=== PATIENT | female | born 1985 | race Caucasian/White ===

== ENCOUNTER 2019-07-28 15:15 | Inpatient (IN) | payer MEDICAID, OTHER ==
[~2019-07-28] VITALS: Ht 167.6 cm; Wt 87.0 kg
[~2019-07-28 15:15] MED LIST: NO HOME MEDS
[2019-07-28] MEDS ORDERED: normal saline 1000ML IV soln IV ONE (15:25)
[2019-07-28] MEDS ORDERED: CefTRIAXone 2gm/D5W 50ml 50 ML IV ONE (15:25)
[2019-07-28] MEDS ORDERED: vancomycin/NS 1 GM ADD-VANTAGE 250 ML IV ONE (15:25)
--- NOTE | 2019-07-28 16:15 | NUR ---
PICC NURSE AT BEDSIDE
[2019-07-28 16:34] LABS: BASOPHILS % (AUTO) 0.4 % (0-1); EOSINOPHILS # (AUTO) 0.1 X10'3 (0-0.9); EOSINOPHILS % (AUTO) 1.2 % (0-6); HEMATOCRIT 34.9 % (35.0-45.0); LYMPHOCYTES # (AUTO) 1.5 X10'3 (1.1-4.8); LYMPHOCYTES % (AUTO) 21.9 % (21-51); MEAN CORPUSCULAR HEMOGLOBIN 29.1 PG (27.0-31.0); MEAN CORPUSCULAR HGB CONC 34.4 g/dL (33.0-36.5); MEAN CORPUSCULAR VOLUME 84.6 FL (78-98); MONOCYTES # (AUTO) 0.4 X10'3 (0-0.9); MONOCYTES % (AUTO) 5.9 % (2-12); NEUTROPHILS # (AUTO) 4.9 X10'3 (1.8-7.7); NEUTROPHILS % (AUTO) 70.6 % (42-75); PLATELET COUNT 265 X10'3 (140-440); RED BLOOD COUNT 4.12 X10'6 (4.20-5.60); RED CELL DISTRIBUTION WIDTH 16.9 % (11.5-14.5)
[2019-07-28 16:51] LABS: ALANINE AMINOTRANSFERASE 18 U/L (12-78); ALBUMIN 3.1 G/DL (3.4-5.0); ALBUMIN/GLOBULIN RATIO 0.6 (1.1-1.5); ALKALINE PHOSPHATASE 75 IU/L (46-116); ANION GAP 9 (8-16); ASPARTATE AMINO TRANSFERASE 23 U/L (10-37); BILIRUBIN,TOTAL 0.5 MG/DL (0.1-1.0); BLOOD UREA NITROGEN 14 MG/DL (7-18); BUN/CREATININE RATIO 16.5 (6.6-38.0); CALCIUM 8.2 MG/DL (8.5-10.1); CHLORIDE 108 MMOL/L (99-107); CREATININE 0.85 MG/DL (0.40-0.90); GLUCOSE 90 MG/DL (70-104); POTASSIUM 3.8 MMOL/L (3.5-5.1); SODIUM 143 MMOL/L (135-145); TOTAL CARBON DIOXIDE 26.1 MMOL/L (24-32); TOTAL PROTEIN 8.2 G/DL (6.4-8.2); eGFR 76 ML/MIN
[2019-07-28 16:59] LABS: ETHANOL < 0.010 GM/DL (0.0-0.010)
[2019-07-28] MEDS ORDERED: iohexol 300mg/ml 100ml inj. ONE (17:08)
[2019-07-28] MEDS ORDERED: iohexol 350MG/ML 100ml bottle IV ONE (17:36)
[2019-07-28 17:43] LABS: URINE HCG NEGATIVE (NEG)
[2019-07-28 17:45] LABS: CLARITY,URINE SLIGHTLY CLOUDY (Clear); COLOR,URINE YELLOW (Yellow); GLUCOSE, URINE NEGATIVE (Neg); KETONES,URINE NEGATIVE (Neg); LEUKOCYTE ESTERASE ,URINE NEGATIVE (Neg); NITRITES, URINE POSITIVE (Neg); OCCULT BLOOD,URINE NEGATIVE (Neg); PH,URINE 6.5 (4.8-8.0); PROTEIN,URINE TRACE mg/dl (Neg)
[2019-07-28 17:49] LABS: UA COLLECTION TYPE CLN CATCH MIDSTREAM
[2019-07-28] MEDS ORDERED: magnesium 2GM in 50ml NS 50 ML IV PRN (17:55)
[2019-07-28] MEDS ORDERED: potassium CL 10mEq/100ml bag 100 ML IV PRN ×2 (17:55)
[2019-07-28] MEDS ORDERED: morphine 2 MG/ML inj. syringe IV PRN ×2 (17:55)
[2019-07-28] MEDS ORDERED: furosemide 10 MG/1 ML 10ml inj IV ONE ×2 (17:55→18:30)
[2019-07-28] MEDS ORDERED: ondansetron/PF 4mg/2ml inj IV PRN (17:55)
[2019-07-28] MEDS ORDERED: magnesium hydroxide 30ml (MOM) UD suspension PO PRN (17:55)
[2019-07-28] MEDS ORDERED: magnesium Cl slow-release 64mg tablet PO PRN (17:55)
[2019-07-28] MEDS ORDERED: metoclopramide 5 mg/ml inj IV PRN (17:55)
[2019-07-28] MEDS ORDERED: HYDROcodone/acetaminophen 5mg/325mg tablet PO PRN (17:55)
[2019-07-28] MEDS ORDERED: HYDROcodone/acetaminophen 10/325mg tab PO PRN (17:55)
[2019-07-28] MEDS ORDERED: potassium Cl 20 mEq SR tablet PO PRN (17:55)
[2019-07-28] MEDS ORDERED: acetaminophen 650mg rectal suppository RC PRN (17:55)
[2019-07-28] MEDS ORDERED: diphenhydrAMINE 25mg capsule PO PRN (17:55)
[2019-07-28] MEDS ORDERED: mag hydrox/Alum hydrox/simeth 30ml oral suspension PO PRN (17:55)
[2019-07-28] MEDS ORDERED: acetaminophen 325mg tablet PO PRN ×2 (17:55)
[2019-07-28] MEDS ORDERED: magnesium 4gm in 100ml NS 100 ML IV PRN (17:55)
[2019-07-28] MEDS ORDERED: diphenhydrAMINE 50 mg/ml inj IV PRN (17:55)
[2019-07-28] MEDS: K and/or MAG REPLACEMENT MC SCH (17:55)
[2019-07-28 17:57] LABS: MUCUS STRANDS MANY /LPF (Neg); SQUAMOUS EPITHELIAL CELL,UR MANY /LPF (FEW)
[2019-07-28 17:58] LABS: COARSE GRANULAR CAST 0-3 /LPF (NEGATIVE); FINE GRANULAR CAST 0-3 /LPF (NEGATIVE); HYALINE CASTS 0-3 /LPF (NEGATIVE); URINE AMPHETAMINE SCREEN POSITIVE (Neg); URINE BARBITUATE SCREEN NEGATIVE (Neg); URINE BENZODIAZEPINES SCREEN NEGATIVE (Neg); URINE CANNABINOID SCREEN NEGATIVE (Neg); URINE COCAINE SCREEN NEGATIVE (Neg); URINE METHADONE SCREEN NEGATIVE (Neg); URINE OPIATE SCREEN POSITIVE (Neg); URINE PHENCYCLIDINE SCREEN NEGATIVE (Neg)
[2019-07-28 17:59] LABS: BACTERIA,URINE 3+ /HPF (Neg); RBC,URINE 0-2 /HPF (0-2); WBC,URINE 0-4 /HPF (0-4)
[2019-07-28 18:00] LABS: TRANSITIONAL EPI CELLS,URINE FEW /HPF
--- NOTE | 2019-07-28 18:01 | NUR ---
PT WAS BROUGHT I BY IS TARIFF PUBLISHING AGENT SCOTT AQUINO. PT WAS CITED AND RELEASED. IF PT LEAVES [facility] PLEASE CALL KORI AQUINO TARIFF PUBLISHING AGENT AT .
[2019-07-28] MEDS: lisinopril 20mg tablet PO SCH (18:10)
[2019-07-28] MEDS ORDERED: aspirin 325mg tablet PO ONE (18:10)
--- NOTE | 2019-07-28 18:13 | NUR ---
PT OFF THE FLOOR TO CT
--- NOTE | 2019-07-28 18:28 | NUR ---
PT BACK FROM CT
[2019-07-28 18:33] LABS: HEMOGLOBIN A1C 4.8 % (4.5-6.2)
[2019-07-28] MEDS: normal saline 1000ml 1,000 ML IV SCH (18:39)
--- NOTE | 2019-07-28 19:16 | NUR ---
PT AMBULATORY TO RESTROOM AND BACK TO BED. SHE HAS BEEN GIVEN A SANDWICH AND JUICE.
[2019-07-28 19:45] VITALS: BP 118/70
--- NOTE | 2019-07-28 19:45 | NUR ---
Patient in room ED 6. I have received report from Eliz VELIZ and had the opportunity to ask questions.
--- NOTE | 2019-07-28 19:45 | NUR ---
Patient arrived to the PCU unit at this time into room 3025A. She is accompanied by her boyfriend. She is alert and oriented and able to make her needs known. She denies pain and this time and vitals are stable. Placed on telemetry monitoring. She is educated about the call light system. All safety precautions in place with bed in LL position, SRx2, non-skid socks. Will continue to monitor.
[2019-07-28] MEDS: heparin, porcine 5000 units/ml vial SQ SCH (20:00)
[2019-07-28] MEDS: carVEDilol 3.125mg tablet PO SCH (21:21)
[2019-07-28] MEDS: docusate sod 100mg capsule PO SCH (21:21)
--- NOTE | 2019-07-28 23:00 | NUR ---
Patient refused orthostatic vitals. Addendum: 07/28/19 at 2300 by Joy Carolina RN Amended: Links added.
--- NOTE | 2019-07-28 23:01 | NUR ---
Skin check performed with second RN Shayy however patient was refusing to let us look under her clothes. She denies having any skin issues that were underneath her gown. With her legs being exposed, several sores were visible to bilateral lower extremities. She did turn and her back was clear but there were also some sores noted to bilateral sides of her abdomen. She refused to let us take off her socks or look in her groin area or under her bra. She also refused to let staff take any pictures at this time but said maybe she would allow it in the morning after she has slept.
[2019-07-28 23:09] VITALS: BP 107/52
[2019-07-29] VITALS (7 sets, daily range): BP systolic 99–118; BP diastolic 50–70
--- NOTE | 2019-07-29 00:30 | NUR ---
Patient had 15 beat run of V-tach. She was sleeping at the time and when she was assessed she said she did not feel any symptoms. Blood pressure was taken and was 103/51.
--- NOTE | 2019-07-29 00:34 | NUR ---
Dr. Snider notified of patient having a 15 beat run of V-tach. Patient was asymptomatic with this and her current blood pressure is 103/51. Agatha ordered to check her Mg level since we already have a K which was normal and then monitor.
[2019-07-29] MEDS: cefepime 1GM in D5W 50mL 50 ML IV SCH ×3 (00:41→16:15)
[2019-07-29] MEDS: furosemide 10 MG/1 ML 10ml inj IV SCH ×3 (00:41→16:18)
[2019-07-29 04:11] LABS: BASOPHILS % (AUTO) 0.7 % (0-1); EOSINOPHILS # (AUTO) 0.4 X10'3 (0-0.9); EOSINOPHILS % (AUTO) 5.8 % (0-6); HEMATOCRIT 33.1 % (35.0-45.0); HEMOGLOBIN 11.4 g/dl (12.0-16.0); LYMPHOCYTES # (AUTO) 2.1 X10'3 (1.1-4.8); LYMPHOCYTES % (AUTO) 33.3 % (21-51); MEAN CORPUSCULAR HGB CONC 34.5 g/dL (33.0-36.5); MEAN CORPUSCULAR VOLUME 84.1 FL (78-98); MEAN PLATELET VOLUME 7.1 FL (7.4-10.4); MONOCYTES # (AUTO) 0.5 X10'3 (0-0.9); MONOCYTES % (AUTO) 8.3 % (2-12); NEUTROPHILS # (AUTO) 3.3 X10'3 (1.8-7.7); NEUTROPHILS % (AUTO) 51.9 % (42-75); PLATELET COUNT 264 X10'3 (140-440); RED BLOOD COUNT 3.94 X10'6 (4.20-5.60); RED CELL DISTRIBUTION WIDTH 16.2 % (11.5-14.5); WHITE BLOOD COUNT 6.3 X10'3 (4.5-11.0)
[2019-07-29 04:31] LABS: ALANINE AMINOTRANSFERASE 23 U/L (12-78); ALBUMIN 2.7 G/DL (3.4-5.0); ALBUMIN/GLOBULIN RATIO 0.6 (1.1-1.5); ALKALINE PHOSPHATASE 67 IU/L (46-116); ANION GAP 6 (8-16); ASPARTATE AMINO TRANSFERASE 23 U/L (10-37); BILIRUBIN,TOTAL 0.5 MG/DL (0.1-1.0); BLOOD UREA NITROGEN 10 MG/DL (7-18); BUN/CREATININE RATIO 11.5 (6.6-38.0); CALCIUM 7.4 MG/DL (8.5-10.1); CHLORIDE 105 MMOL/L (99-107); CREATININE 0.87 MG/DL (0.40-0.90); GLUCOSE 120 MG/DL (70-104); POTASSIUM 3.2 MMOL/L (3.5-5.1); SODIUM 138 MMOL/L (135-145); TOTAL CARBON DIOXIDE 27.3 MMOL/L (24-32); TOTAL PROTEIN 7.5 G/DL (6.4-8.2); eGFR 74 ML/MIN
[2019-07-29 04:35] LABS: CHOL/HDL RATIO 4.2 (0.00-4.99); CHOLESTEROL 126 MG/DL (0-200); HDL CHOLESTEROL 30 MG/DL (35-60); LDL CHOLESTEROL 89 MG/DL (50-100); PHOSPHORUS 3.3 MG/DL (2.3-4.5); TRIGLYCERIDES 70 MG/DL (20-135)
[2019-07-29] MEDS: potassium Cl 20 mEq SR tablet PO PRN (04:35)
--- NOTE | 2019-07-29 04:50 | NUR ---
Morning K came back at 3.2 so started the replacement protocol.
--- NOTE | 2019-07-29 06:09 | NUR ---
Problems reprioritized. Patient report given, questions answered & plan of care reviewed with Doretha VELIZ.
[2019-07-29] MEDS: K and/or MAG REPLACEMENT MC SCH (07:32)
[2019-07-29] MEDS: docusate sod 100mg capsule PO SCH ×2 (07:32→22:26)
[2019-07-29] MEDS: lisinopril 20mg tablet PO SCH (07:44)
[2019-07-29] MEDS: carVEDilol 3.125mg tablet PO SCH (07:44)
[2019-07-29] MEDS: aspirin 81mg tablet.DR PO SCH (07:57)
[2019-07-29] MEDS: heparin, porcine 5000 units/ml vial SQ SCH ×2 (08:00→20:00)
--- NOTE | 2019-07-29 08:00 | NUR ---
After receiving report went in to the room to assess patient and patient refused to allow me to remove socks or look at her skin under her gown. Patient also is refusing to have her subcutaneous heparin. Patient blood pressure is too low to give lasix, coreg and lisinopril. Will notify .
[2019-07-29] MEDS: VANCOmycin 1250MG/NS 250ml Bag 250 ML IV SCH ×2 (09:42→17:26)
--- NOTE | 2019-07-29 09:57 | NUR ---
PAGER ID: [phone] MESSAGE: [id number], Labree. Patient is refusing straight cath, will try to get a clean catch urine sample. Doretha [phone]
--- NOTE | 2019-07-29 10:00 | NUR ---
Patient refusing to work with PT. Patient instructed RN to get out and leave her alone at this time. Non- compliant care plan will be added to POC.
[2019-07-29 11:53] LABS: HIV ANTIBODY 1&2 RAPID NON-REACTIVE (Neg)
--- NOTE | 2019-07-29 13:09 | NUR ---
Patient is agitated and wanting to go outside, instructed that she cannot go outside due to telemetry monitoring. Patient has said she is planning to leave today, will continue to monitor.
--- NOTE | 2019-07-29 13:10 | NUR ---
Patient was found smoking in bathroom. Patient was educated on risks of smoking in the hospital and asked if she had anymore cigarettes and a passenger service agent which she denied. Patient requested to speak with Lashawn Escobar regarding the life vest. Tried to contact Lashawn Escobar. Patient said she would be leaving the hospital today. Patient was educated that without a discharge the patient would have to leave AMA and I could page the MD if she would like to talk about her POC. Will continue to monitor.
[2019-07-29] MEDS: normal saline 1000ml 1,000 ML IV SCH (13:55)
--- NOTE | 2019-07-29 16:04 | NUR ---
Patient refusing orthostatic vital signs, will try again later.
--- NOTE | 2019-07-29 18:47 | NUR ---
Problems reprioritized. Patient report given, questions answered & plan of care reviewed with Roberto VELIZ. Patient stable at transfer of care.
[2019-07-29] MEDS ORDERED: lisinopril 5mg tablet PO SCH (21:00)
[2019-07-29] MEDS: lactobacillus rhamnosus 10,000 MMU CELLS/CAPSULE PO SCH (22:26)
[2019-07-30] MEDS: cefepime 1GM in D5W 50mL 50 ML IV SCH ×2 (00:51→08:48)
[2019-07-30] MEDS: furosemide 10 MG/1 ML 10ml inj IV SCH ×2 (00:52→08:00)
[2019-07-30] MEDS: potassium Cl 20 mEq SR tablet PO PRN (00:54)
[2019-07-30] MEDS: VANCOmycin 1250MG/NS 250ml Bag 250 ML IV SCH ×2 (01:00→09:00)
--- NOTE | 2019-07-30 06:22 | NUR ---
Patient in room PCU 3025. I have received report from Roberto VELIZ and had the opportunity to ask questions and assume patient care.
--- NOTE | 2019-07-30 07:07 | NUR ---
Lab was p to draw morning labs and patient refused and her extended PIV will not draw. Will notify .
[2019-07-30 07:13] VITALS: BP 90/45
[2019-07-30] MEDS: heparin, porcine 5000 units/ml vial SQ SCH (08:00)
[2019-07-30] MEDS ORDERED: metoprolol succinate 25mg (24-HOUR) SR. Tablet PO SCH (08:00)
[2019-07-30] MEDS: K and/or MAG REPLACEMENT MC SCH (08:00)
[2019-07-30] MEDS ORDERED: VANCOMYCIN LEVEL IV ONE (08:30)
[2019-07-30 08:31] LABS: HBSAG SCREEN Negative (Negative); HEP A AB, IGM Negative (Negative); HEP B CORE AB, IGM Negative (Negative); HEPATITIS C ANTIBODY >11.0 s/co ratio (0.0-0.9)
[2019-07-30] MEDS: lactobacillus rhamnosus 10,000 MMU CELLS/CAPSULE PO SCH (08:48)
[2019-07-30] MEDS: aspirin 81mg tablet.DR PO SCH (08:49)
[2019-07-30] MEDS: docusate sod 100mg capsule PO SCH (08:49)
--- NOTE | 2019-07-30 09:08 | NUR ---
PAGER ID: [phone] MESSAGE: Manuel [id number], Tracie. Lab has been unable to obtain morning labs and vanco trough. Extended PIV will not draw. Please advise. Doretha [phone]
--- NOTE | 2019-07-30 09:15 | NUR ---
Rm [id number], [facility]. Patient extended will not draw, Dr. Yarbrough would like you to come evaluate. Thank you.
[2019-07-30 10:15] LABS: BASOPHILS % (AUTO) 0.8 % (0-1); EOSINOPHILS # (AUTO) 0.5 X10'3 (0-0.9); EOSINOPHILS % (AUTO) 8.1 % (0-6); HEMATOCRIT 36.9 % (35.0-45.0); HEMOGLOBIN 12.4 g/dl (12.0-16.0); LYMPHOCYTES # (AUTO) 1.9 X10'3 (1.1-4.8); LYMPHOCYTES % (AUTO) 34.2 % (21-51); MEAN CORPUSCULAR HEMOGLOBIN 28.8 PG (27.0-31.0); MEAN CORPUSCULAR HGB CONC 33.8 g/dL (33.0-36.5); MEAN CORPUSCULAR VOLUME 85.4 FL (78-98); MEAN PLATELET VOLUME 7.3 FL (7.4-10.4); MONOCYTES # (AUTO) 0.5 X10'3 (0-0.9); MONOCYTES % (AUTO) 8.3 % (2-12); NEUTROPHILS # (AUTO) 2.8 X10'3 (1.8-7.7); NEUTROPHILS % (AUTO) 48.6 % (42-75); PLATELET COUNT 271 X10'3 (140-440); RED BLOOD COUNT 4.32 X10'6 (4.20-5.60); RED CELL DISTRIBUTION WIDTH 16.2 % (11.5-14.5); WHITE BLOOD COUNT 5.7 X10'3 (4.5-11.0)
[2019-07-30 10:34] LABS: ALANINE AMINOTRANSFERASE 23 U/L (12-78); ALBUMIN/GLOBULIN RATIO 0.6 (1.1-1.5); ALKALINE PHOSPHATASE 75 IU/L (46-116); ANION GAP 7 (8-16); ASPARTATE AMINO TRANSFERASE 30 U/L (10-37); BILIRUBIN,TOTAL 0.5 MG/DL (0.1-1.0); BLOOD UREA NITROGEN 12 MG/DL (7-18); BUN/CREATININE RATIO 12.9 (6.6-38.0); CALCIUM 8.5 MG/DL (8.5-10.1); CHLORIDE 104 MMOL/L (99-107); CREATININE 0.93 MG/DL (0.40-0.90); GLUCOSE 108 MG/DL (70-104); MAGNESIUM 1.7 MG/DL (1.5-2.4); PHOSPHORUS 3.6 MG/DL (2.3-4.5); POTASSIUM 3.6 MMOL/L (3.5-5.1); SODIUM 142 MMOL/L (135-145); TOTAL CARBON DIOXIDE 31.2 MMOL/L (24-32); TOTAL PROTEIN 8.2 G/DL (6.4-8.2); eGFR 68 ML/MIN
[2019-07-30 10:39] LABS: VANCOMYCIN,TROUGH 24.5 UG/ML (6.0-14.0)
[2019-07-30 12:13] VITALS: BP 105/64
[2019-07-30] MEDS ORDERED: LISI-642 PO (13:12)
[2019-07-30] MEDS ORDERED: CEFD300C3 PO (13:12)
[2019-07-30] MEDS ORDERED: LACT1CAP26 PO (13:12)
[2019-07-30] MEDS ORDERED: LINE600T12 PO (13:12)
[2019-07-30] MEDS ORDERED: ASPI-1071 PO (13:12)
[2019-07-30] MEDS ORDERED: METO-395 PO (13:12)
[2019-07-30] MEDS ORDERED: SPIR25TA5 PO (13:18)
[2019-07-30] MEDS ORDERED: FURO-150 PO (13:18)
--- NOTE | 2019-07-30 14:52 | NUR ---
Patient is refusing to have discharge wound pictures taken.
[2019-07-30 15:00] VITALS: BP 102/69
--- NOTE | 2019-07-30 15:03 | NUR ---
pt refused wound pictures on discharge Addendum: 07/30/19 at 1503 by Doretha Garcia RN Amended: Links added.
--- NOTE | 2019-07-30 16:01 | NUR ---
Patient discharged home at 1555 with boyfriend. Discharge packet reviewed before signing and being sent home with patient. Patient educated on cessation of smoking and drug use. [facility] [place]. PIV's were removed with cannula intact, telemetry was d/c'd and wound packing was removed. Patient was wheeled down by staff and left via private vehicle.
--- NOTE | 2019-07-30 16:14 | NUR ---
Patient refused to have discharge wound pictures taken. Addendum: 07/30/19 at 1615 by Doretha Garcia RN Amended: Links added.
[2019-07-30] MEDS ORDERED: vancomycin/NS 1 GM ADD-VANTAGE 250 ML IV SCH (17:00)
[2019-07-31] MEDS ORDERED: VANCOMYCIN LEVEL IV ONE (16:30)
== END 2019-07-30 15:58 | disposition home or self-care (01) | DRG 383 ==
LOC: ER 15:16 → ED HOLD 18:20 → EDBEDREQ 19:32 → PCU 3S 19:50
PROVIDERS: ADMIT Family Medicine; ATTEND Family Medicine
DX: L02.415 Cutaneous abscess of right lower limb (principal); I50.43 Acute on chronic combined systolic (congestive) and diastolic (congestive) heart failure; I42.9 Cardiomyopathy, unspecified; R65.10 Systemic inflammatory response syndrome (SIRS) of non-infectious origin without acute organ dysfunction; F11.20 Opioid dependence, uncomplicated; L03.311 Cellulitis of abdominal wall; E87.6 Hypokalemia; F17.210 Nicotine dependence, cigarettes, uncomplicated; F15.10 Other stimulant abuse, uncomplicated; Z82.49 Family history of ischemic heart disease and other diseases of the circulatory system; Z86.14 Personal history of Methicillin resistant Staphylococcus aureus infection; Z86.79 Personal history of other diseases of the circulatory system; Z91.19 Patient's noncompliance with other medical treatment and regimen; Z88.0 Allergy status to penicillin; Z88.2 Allergy status to sulfonamides; Z98.51 Tubal ligation status; Z71.51 Drug abuse counseling and surveillance of drug abuser; Z71.6 Tobacco abuse counseling
CPT/HCPCS: 36415; 71045; 71275; 74177; 76937; 80053; 80061; 80202; 80305; 80320; 81001; 81025; 83036; 83605; 83735; 83880; 84100; 84145; 84484; 85025; 86703; 86705; 86706; 86709; 86803; 87040; 87081; 87088; 87340; 92508; 92616; 93005; 93306; 96365; 99291; G0378; J0692; J0696; J1644; J1940; J3370; J7030; Q9967

== ENCOUNTER 2020-07-27 10:01 | Inpatient (IN) | payer MEDICAID ==
[~2020-07-27] VITALS: Ht 167.6 cm; Wt 64.0 kg
[~2020-07-27 10:01] MED LIST changes: +ASPI-1071 PO; +LACT1CAP26 PO; +LISI-642 PO; +METO-395 PO; -NO HOME MEDS; +SPIR25TA5 PO
--- NOTE | 2020-07-27 11:17 | NUR ---
PT UP TO BEDSIDE COMODE
[2020-07-27 11:51] LABS: BASOPHILS % (AUTO) 0.6 % (0-1); EOSINOPHILS # (AUTO) 0.2 X10'3 (0-0.9); EOSINOPHILS % (AUTO) 2.1 % (0-6); HEMATOCRIT 30.3 % (35.0-45.0); HEMOGLOBIN 9.4 g/dl (12.0-16.0); LYMPHOCYTES # (AUTO) 2.3 X10'3 (1.1-4.8); LYMPHOCYTES % (AUTO) 26.7 % (21-51); MEAN CORPUSCULAR HEMOGLOBIN 23.7 PG (27.0-31.0); MEAN CORPUSCULAR VOLUME 76.6 FL (78-98); MEAN PLATELET VOLUME 7.8 FL (7.4-10.4); MONOCYTES # (AUTO) 0.7 X10'3 (0-0.9); MONOCYTES % (AUTO) 8.2 % (2-12); NEUTROPHILS # (AUTO) 5.4 X10'3 (1.8-7.7); NEUTROPHILS % (AUTO) 62.4 % (42-75); PLATELET COUNT 280 X10'3 (140-440); RED BLOOD COUNT 3.95 X10'6 (4.20-5.60); RED CELL DISTRIBUTION WIDTH 19.8 % (11.5-14.5); WHITE BLOOD COUNT 8.6 X10'3 (4.5-11.0)
[2020-07-27 11:52] LABS: ALANINE AMINOTRANSFERASE 25 U/L (12-78); ALBUMIN 2.7 G/DL (3.4-5.0); ALBUMIN/GLOBULIN RATIO 0.6 (1.1-1.5); ALKALINE PHOSPHATASE 98 IU/L (46-116); ANION GAP 4 (8-16); ASPARTATE AMINO TRANSFERASE 25 U/L (10-37); BLOOD UREA NITROGEN 25 MG/DL (7-18); BUN/CREATININE RATIO 31.6 (6.6-38.0); CALCIUM 8.2 MG/DL (8.5-10.1); CHLORIDE 104 MMOL/L (99-107); CREATININE 0.79 MG/DL (0.40-0.90); GLUCOSE 97 MG/DL (70-104); POTASSIUM 3.9 MMOL/L (3.5-5.1); SODIUM 137 MMOL/L (135-145); TOTAL CARBON DIOXIDE 29.2 MMOL/L (24-32); TOTAL PROTEIN 7.3 G/DL (6.4-8.2); eGFR 82 ML/MIN
[2020-07-27] MEDS ORDERED: CefTRIAXone/D5W-Rocephin 1gm 50 ML IV STA (12:13)
[2020-07-27] MEDS ORDERED: heparin 25,000 UNIT/250ml bag 250 ML IV SCH (12:15)
[2020-07-27 12:21] LABS: PARTIAL THROMBOPLASTIN TIME 31 SECONDS (22-32)
[2020-07-27 12:26] LABS: URINE HCG NEGATIVE (NEG)
[2020-07-27] MEDS ORDERED: vancomycin/NS 1 GM ADD-VANTAGE 250 ML IV ONE (12:30)
[2020-07-27 12:32] LABS: URINE AMPHETAMINE SCREEN POSITIVE (Neg); URINE BARBITUATE SCREEN NEGATIVE (Neg); URINE BENZODIAZEPINES SCREEN NEGATIVE (Neg); URINE CANNABINOID SCREEN NEGATIVE (Neg); URINE COCAINE SCREEN NEGATIVE (Neg); URINE METHADONE SCREEN NEGATIVE (Neg); URINE OPIATE SCREEN POSITIVE (Neg); URINE PHENCYCLIDINE SCREEN NEGATIVE (Neg)
[2020-07-27] MEDS ORDERED: heparin 10,000 units/1 ML INJ IV PRN (12:35)
--- NOTE | 2020-07-27 13:14 | NUR ---
echo at bedside.
[2020-07-27] MEDS ORDERED: CARV3.122 PO (14:21)
[2020-07-27] MEDS ORDERED: RIVA20TA PO (14:21)
[2020-07-27] MEDS ORDERED: potassium CL 10mEq/100ml bag 100 ML IV PRN ×2 (14:25)
[2020-07-27] MEDS ORDERED: acetaminophen 325mg tablet PO PRN (14:25)
[2020-07-27] MEDS ORDERED: magnesium 4gm in 100ml NS 100 ML IV PRN (14:25)
[2020-07-27] MEDS ORDERED: ondansetron/PF 4mg/2ml inj IV PRN (14:25)
[2020-07-27] MEDS ORDERED: ipratropium/albuterol 3ml nebule NEB PRN (14:25)
[2020-07-27] MEDS ORDERED: mag hydrox/Alum hydrox/simeth 30ml oral suspension PO PRN (14:25)
[2020-07-27] MEDS ORDERED: magnesium hydroxide 30ml (MOM) UD suspension PO PRN (14:25)
[2020-07-27] MEDS ORDERED: potassium Cl 20 mEq SR tablet PO PRN ×2 (14:25)
[2020-07-27] MEDS ORDERED: magnesium 2GM in 50ml NS 50 ML IV PRN (14:25)
[2020-07-27] MEDS: normal saline 1000ml 1,000 ML IV SCH ×2 (15:24→23:03)
[2020-07-27] MEDS ORDERED: heparin 10,000 units/1 ML INJ IV ONE (15:30)
[2020-07-27] MEDS: heparin 25,000 UNIT/250ml bag 250 ML IV SCH ×2 (15:30→23:01)
[2020-07-27] MEDS: cefepime 1GM/NS ADD-VANTAGE 100 ML IV SCH (16:32)
--- NOTE | 2020-07-27 17:21 | NUR ---
Discussed pt's c/o pain with Dr Jiménez; new order for Dilaudid 0.5 mg IV moderate pain and 1.0 mg sever pain, q4hr with first dose now.
[2020-07-27] MEDS ORDERED: HYDROmorphone inj. 0.5 MG/0.5 ML DISP.SYRIN IV PRN (17:35)
[2020-07-27] MEDS ORDERED: HYDROmorphone 1 mg/ml syringe IV ONE (17:35)
[2020-07-27] MEDS: HYDROmorphone 1 mg/ml syringe IV PRN (19:55)
[2020-07-27] MEDS: K and/or MAG REPLACEMENT MC SCH (19:58)
[2020-07-27] MEDS ORDERED: enoxaparin 60mg/0.6ml syringe SUBCUT SCH (20:00)
[2020-07-27] MEDS: nicotine 14mg patch - 24hr TD SCH (20:10)
[2020-07-27] MEDS: carVEDilol 3.125mg tablet PO SCH (20:44)
--- NOTE | 2020-07-27 20:57 | NUR ---
DR. AVILES CALLED TO REQUEST CATH FLOW ORDER FOR CENTRAL LINE, THE LINES ARE NOT DRAWNING AND PT NOW REFUSING ANY FURTHER LAB DRAWS.
[2020-07-27] MEDS ORDERED: tPA-cathflo 2 MG/2 ml IV flush IVF ONE (21:00)
--- NOTE | 2020-07-27 21:43 | NUR ---
PATIENT IN BED EYES CLOSED RR EVEN UN LABORED NO OBSERVABLE S/S OF ACUTE STRESS / PAIN AT TYHIS TIME WILL CONTINUE TO MONITOR, WHEN AROUSING PATIENT FROM SLEEP FIRST VERBAL REQUEST FROM PATIENT IS "I NEED MORE PAIN MEDS." THEN PATIENT CLOSES EYES AND CONTINUES TO REST COMFORTABLY
--- NOTE | 2020-07-27 22:06 | NUR ---
CATH MAREN WORKED PULLED PTT WAITING FOR RESULTS TO ADJUST HEPARIN
[2020-07-27] MEDS: heparin 10,000 units/1 ML INJ IV PRN (22:56)
[2020-07-27 23:00] VITALS: BP 126/89
[2020-07-28] MEDS: HYDROmorphone 1 mg/ml syringe IV PRN ×4 (00:12→12:08)
[2020-07-28] MEDS: cefepime 1GM/NS ADD-VANTAGE 100 ML IV SCH (01:19)
--- NOTE | 2020-07-28 02:00 | NUR ---
pt refused to let RNs do full skin check upon admission
[2020-07-28] MEDS: vancomycin/NS 1 GM ADD-VANTAGE 250 ML IV SCH ×2 (02:48→14:50)
[2020-07-28 05:36] LABS: ALANINE AMINOTRANSFERASE 22 U/L (12-78); ALBUMIN 2.4 G/DL (3.4-5.0); ALBUMIN/GLOBULIN RATIO 0.6 (1.1-1.5); ALKALINE PHOSPHATASE 87 IU/L (46-116); ANION GAP 7 (8-16); ASPARTATE AMINO TRANSFERASE 18 U/L (10-37); BILIRUBIN,TOTAL 0.7 MG/DL (0.1-1.0); BLOOD UREA NITROGEN 22 MG/DL (7-18); BUN/CREATININE RATIO 27.8 (6.6-38.0); CALCIUM 7.8 MG/DL (8.5-10.1); CHLORIDE 106 MMOL/L (99-107); CREATININE 0.79 MG/DL (0.40-0.90); GLUCOSE 119 MG/DL (70-104); MAGNESIUM 1.7 MG/DL (1.5-2.4); POTASSIUM 3.9 MMOL/L (3.5-5.1); SODIUM 142 MMOL/L (135-145); TOTAL PROTEIN 6.7 G/DL (6.4-8.2); eGFR 82 ML/MIN
[2020-07-28 05:46] LABS: BASOPHILS # (AUTO) 0.1 X10'3 (0-0.2); BASOPHILS % (AUTO) 0.8 % (0-1); EOSINOPHILS # (AUTO) 0.2 X10'3 (0-0.9); EOSINOPHILS % (AUTO) 2.9 % (0-6); HEMOGLOBIN 8.7 g/dl (12.0-16.0); LYMPHOCYTES % (AUTO) 25.6 % (21-51); MEAN CORPUSCULAR HEMOGLOBIN 23.8 PG (27.0-31.0); MEAN CORPUSCULAR VOLUME 76.9 FL (78-98); MEAN PLATELET VOLUME 7.7 FL (7.4-10.4); MONOCYTES # (AUTO) 0.6 X10'3 (0-0.9); NEUTROPHILS # (AUTO) 4.9 X10'3 (1.8-7.7); NEUTROPHILS % (AUTO) 62.7 % (42-75); PLATELET COUNT 255 X10'3 (140-440); RED BLOOD COUNT 3.64 X10'6 (4.20-5.60); RED CELL DISTRIBUTION WIDTH 19.8 % (11.5-14.5); WHITE BLOOD COUNT 7.9 X10'3 (4.5-11.0)
[2020-07-28] MEDS: heparin 10,000 units/1 ML INJ IV PRN ×2 (05:57→13:05)
[2020-07-28] MEDS: heparin 25,000 UNIT/250ml bag 250 ML IV SCH ×3 (06:02→17:20)
--- NOTE | 2020-07-28 06:13 | NUR ---
Problems reprioritized. Patient report given, questions answered & plan of care reviewed with Todd and Gloria RNs.
--- NOTE | 2020-07-28 06:30 | NUR ---
Patient in room PCU 3024. I have received report from Evelyn VELIZ and had the opportunity to ask questions and assume patient care.
[2020-07-28] MEDS: K and/or MAG REPLACEMENT MC SCH ×2 (08:00→20:00)
[2020-07-28] MEDS: cefepime inj. 1 GM in normal saline 100ml IV soln 100 ML IV SCH ×2 (08:08→17:17)
[2020-07-28] MEDS: carVEDilol 3.125mg tablet PO SCH ×2 (08:08→20:34)
[2020-07-28] MEDS: lisinopril 2.5mg tablet PO SCH (08:08)
--- NOTE | 2020-07-28 09:52 | NUR ---
PAGER ID: [phone] MESSAGE: Re: Minna Hodges. Room: 3024B. Pt refused second set of blood cultures. First set drawn from central line from groin but Pt refusing to sticked for second set. -[facility] #[id number] Dr. Jiménez paged concerning Pt's blood cultures.
[2020-07-28 11:00] VITALS: BP 119/85
[2020-07-28] MEDS: normal saline 1000ml 1,000 ML IV SCH ×2 (11:12→20:35)
[2020-07-28] MEDS ORDERED: HYDROmorphone 1 mg/ml syringe IV ONE (12:30)
[2020-07-28 15:00] VITALS: BP 125/91
[2020-07-28] MEDS ORDERED: HYDROmorphone 1 mg/ml syringe IV PRN (15:00)
--- NOTE | 2020-07-28 15:00 | NUR ---
Pt smoking in Bathroom. Educated Pt that she should not be smoking and that 2nd smoke can harm other Pt's, as well as being around flameable oxygen.
--- NOTE | 2020-07-28 15:21 | NUR ---
Initial: Pt admitted w/ acute PE, possible endocarditis, and sepsis. Pt has history of drug abuse. Pt is consuming 100% since admit and meeting nutrition needs. Met with pt at bedside, reports good appetite and is still hungry between meals. Agreeable to increase protein at meals. Recommend double protein TID, d/w dietary.Reports NKFA, no difficulty chewing/swallowing, or no GI symptoms. Will continue to monitor PO intake. Recs: 1) Continue Heart Healthy Diet 2) Double eggs with breakfast, double meat with lunch and dinner 2) Bowel care as needed 3) Scaled wt per Rx Addendum: 07/28/20 at [address] Amended: Links added. Addendum: 07/28/20 at [address] RD agree with Chief Operating Engineer note 07/28 152 [id number]
--- NOTE | 2020-07-28 16:00 | NUR ---
PAGER ID: [phone] MESSAGE: Re: Rama Hodges. Room: 3024B. Pt continues to smoke in bathroom and want to go outside to smoke now. -Todd [facility] #[id number] Dr. Jiménez paged concerning Pt smoking.
--- NOTE | 2020-07-28 16:30 | NUR ---
Pt continues to smoke in the bathroom, MD Jiménez notified. Pt will be moved to room where sitter is applied to watch Pt.
[2020-07-28] MEDS ORDERED: morphine 2 MG/ML inj. syringe IV PRN (16:45)
[2020-07-28] MEDS: morphine 2 MG/ML inj. syringe IV PRN ×2 (17:21→21:39)
--- NOTE | 2020-07-28 18:00 | NUR ---
Patient in room PCU 3015. I have received report from Todd VELIZ and had the opportunity to ask questions and assume patient care.
--- NOTE | 2020-07-28 18:14 | NUR ---
Problems reprioritized. Patient report given, questions answered & plan of care reviewed with Suzie VELIZ.
[2020-07-28] MEDS: nicotine 14mg patch - 24hr TD SCH (20:00)
[2020-07-28 22:00] VITALS: BP 115/67
--- NOTE | 2020-07-28 22:10 | NUR ---
Patient is in therapeutic range for heparin.
--- NOTE | 2020-07-28 22:40 | NUR ---
Patient has pulled lines out. Screaming at staff and threatening.
--- NOTE | 2020-07-28 22:50 | NUR ---
Dr. Flores has ordered restraints for the patient and lovenox subq. Will continue to monitor.
[2020-07-28] MEDS ORDERED: enoxaparin 100mg/ml syringe SUBCUT SCH (23:25)
[2020-07-29] MEDS: cefepime inj. 1 GM in normal saline 100ml IV soln 100 ML IV SCH ×4 (00:51→23:10)
[2020-07-29] MEDS: enoxaparin 40mg/0.4ml syringe SQ SCH ×3 (01:12→20:29)
[2020-07-29] MEDS: enoxaparin 30mg/0.3ml syringe SUBCUT SCH ×3 (01:12→20:30)
[2020-07-29] MEDS: vancomycin/NS 1 GM ADD-VANTAGE 250 ML IV SCH ×2 (02:11→14:58)
[2020-07-29] MEDS: morphine 2 MG/ML inj. syringe IV PRN (02:12)
--- NOTE | 2020-07-29 05:33 | NUR ---
Discontinuing restraints, patient mentation has improved.
--- NOTE | 2020-07-29 06:12 | NUR ---
Patient refuses to do vitals at 1800 yesterday, and 0200. She was willing to do the 2200 vitals but not the temperature.
[2020-07-29] MEDS: normal saline 1000ml 1,000 ML IV SCH ×2 (06:23→14:59)
--- NOTE | 2020-07-29 06:50 | NUR ---
Problems reprioritized. Patient report given, questions answered & plan of care reviewed with Monique VELIZ.
--- NOTE | 2020-07-29 07:19 | NUR ---
refused vitals Addendum: 07/29/20 at 0719 by Monique Rodriguez RN Amended: Links added.
[2020-07-29] MEDS: lisinopril 2.5mg tablet PO SCH (08:00)
[2020-07-29] MEDS: carVEDilol 3.125mg tablet PO SCH ×2 (08:00→20:29)
[2020-07-29] MEDS: K and/or MAG REPLACEMENT MC SCH ×2 (08:00→20:00)
[2020-07-29] MEDS: nicotine 14mg patch - 24hr TD SCH (08:00)
[2020-07-29 10:09] LABS: BASOPHILS % (AUTO) 0.4 % (0-1); EOSINOPHILS % (AUTO) 0.1 % (0-6); HEMATOCRIT 32.4 % (35.0-45.0); HEMOGLOBIN 10.1 g/dl (12.0-16.0); LYMPHOCYTES # (AUTO) 1.5 X10'3 (1.1-4.8); LYMPHOCYTES % (AUTO) 13.9 % (21-51); MEAN CORPUSCULAR HGB CONC 31.2 g/dL (33.0-36.5); MEAN CORPUSCULAR VOLUME 76.8 FL (78-98); MEAN PLATELET VOLUME 7.7 FL (7.4-10.4); MONOCYTES # (AUTO) 0.4 X10'3 (0-0.9); NEUTROPHILS # (AUTO) 8.7 X10'3 (1.8-7.7); NEUTROPHILS % (AUTO) 81.6 % (42-75); PLATELET COUNT 311 X10'3 (140-440); RED BLOOD COUNT 4.21 X10'6 (4.20-5.60); RED CELL DISTRIBUTION WIDTH 19.8 % (11.5-14.5); WHITE BLOOD COUNT 10.7 X10'3 (4.5-11.0)
--- NOTE | 2020-07-29 10:21 | NUR ---
Patient is refusing vitals and oral medication.
[2020-07-29 10:50] LABS: ANISOCYTOSIS 2+; MICROCYTOSIS 1+; PLATELET ESTIMATE NORMAL
--- NOTE | 2020-07-29 10:55 | NUR ---
Patient keeps removing and refusing tele box, spoke with , okay to d/c tele.
--- NOTE | 2020-07-29 10:56 | NUR ---
MD made aware of patient waking up from sleep short of breath and anxious.
[2020-07-29 11:00] VITALS: BP 122/87
[2020-07-29 11:04] LABS: ALANINE AMINOTRANSFERASE 21 U/L (12-78); ALBUMIN 2.7 G/DL (3.4-5.0); ALBUMIN/GLOBULIN RATIO 0.6 (1.1-1.5); ALKALINE PHOSPHATASE 84 IU/L (46-116); ANION GAP 9 (8-16); ASPARTATE AMINO TRANSFERASE 17 U/L (10-37); BILIRUBIN,TOTAL 0.8 MG/DL (0.1-1.0); BLOOD UREA NITROGEN 23 MG/DL (7-18); BUN/CREATININE RATIO 32.9 (6.6-38.0); CALCIUM 8.9 MG/DL (8.5-10.1); CHLORIDE 111 MMOL/L (99-107); GLUCOSE 112 MG/DL (70-104); MAGNESIUM 1.9 MG/DL (1.5-2.4); POTASSIUM 4.3 MMOL/L (3.5-5.1); SODIUM 145 MMOL/L (135-145); TOTAL CARBON DIOXIDE 25.5 MMOL/L (24-32); TOTAL PROTEIN 7.4 G/DL (6.4-8.2); eGFR > 90 ML/MIN
--- NOTE | 2020-07-29 11:20 | NUR ---
Patient refused physical assessment, does not let me listen to heart, lung, or bowel sounds. Refuses PO medication, tele box. Patient appears to be SOB at times, otherwise sleeps between care.
[2020-07-29] MEDS: HYDROmorphone 1 mg/ml syringe IV PRN ×4 (11:47→23:53)
[2020-07-29] MEDS ORDERED: VANCOMYCIN LEVEL IV ONE (13:30)
[2020-07-29 15:00] VITALS: BP 124/84
--- NOTE | 2020-07-29 18:00 | NUR ---
Patient refused 1800 vital sign
--- NOTE | 2020-07-29 18:18 | NUR ---
Patient in room PCU 3015. I have received report from KEREN Amaya and had the opportunity to ask questions and assume patient care.
--- NOTE | 2020-07-29 18:26 | NUR ---
Problems reprioritized. Patient report given, questions answered & plan of care reviewed with Suki VELIZ.
[2020-07-29] MEDS: lactobacillus rhamnosus 10,000 MMU CELLS/CAPSULE PO SCH (20:29)
[2020-07-29 23:17] VITALS: BP 131/86
[2020-07-30] MEDS: normal saline 1000ml 1,000 ML IV SCH (02:30)
[2020-07-30] MEDS: vancomycin/NS 1 GM ADD-VANTAGE 250 ML IV SCH (02:30)
[2020-07-30 02:41] VITALS: BP 136/87
[2020-07-30] MEDS: HYDROmorphone 1 mg/ml syringe IV PRN ×2 (04:07→09:13)
[2020-07-30 06:04] LABS: BASOPHILS # (AUTO) 0.1 X10'3 (0-0.2); BASOPHILS % (AUTO) 0.5 % (0-1); EOSINOPHILS % (AUTO) 0.1 % (0-6); HEMATOCRIT 31.8 % (35.0-45.0); LYMPHOCYTES # (AUTO) 2.2 X10'3 (1.1-4.8); LYMPHOCYTES % (AUTO) 16.2 % (21-51); MEAN CORPUSCULAR HEMOGLOBIN 24.4 PG (27.0-31.0); MEAN CORPUSCULAR HGB CONC 31.3 g/dL (33.0-36.5); MEAN PLATELET VOLUME 8.1 FL (7.4-10.4); MONOCYTES # (AUTO) 0.7 X10'3 (0-0.9); MONOCYTES % (AUTO) 4.9 % (2-12); NEUTROPHILS # (AUTO) 10.8 X10'3 (1.8-7.7); NEUTROPHILS % (AUTO) 78.3 % (42-75); PLATELET COUNT 354 X10'3 (140-440); RED BLOOD COUNT 4.08 X10'6 (4.20-5.60); RED CELL DISTRIBUTION WIDTH 20.1 % (11.5-14.5); WHITE BLOOD COUNT 13.8 X10'3 (4.5-11.0)
[2020-07-30 06:24] LABS: ALANINE AMINOTRANSFERASE 20 U/L (12-78); ALBUMIN 2.6 G/DL (3.4-5.0); ALBUMIN/GLOBULIN RATIO 0.6 (1.1-1.5); ALKALINE PHOSPHATASE 75 IU/L (46-116); ANION GAP 6 (8-16); ASPARTATE AMINO TRANSFERASE 14 U/L (10-37); BILIRUBIN,TOTAL 0.6 MG/DL (0.1-1.0); BLOOD UREA NITROGEN 24 MG/DL (7-18); BUN/CREATININE RATIO 30.8 (6.6-38.0); CALCIUM 8.8 MG/DL (8.5-10.1); CHLORIDE 111 MMOL/L (99-107); CREATININE 0.78 MG/DL (0.40-0.90); GLUCOSE 124 MG/DL (70-104); MAGNESIUM 1.9 MG/DL (1.5-2.4); POTASSIUM 4.4 MMOL/L (3.5-5.1); SODIUM 143 MMOL/L (135-145); TOTAL CARBON DIOXIDE 25.9 MMOL/L (24-32); TOTAL PROTEIN 7.1 G/DL (6.4-8.2); eGFR 83 ML/MIN
--- NOTE | 2020-07-30 06:36 | NUR ---
Problems reprioritized. Patient report given, questions answered & plan of care reviewed with KEREN Pineda.
--- NOTE | 2020-07-30 07:10 | NUR ---
Patient in room PCU 3015. I have received report from MYA VELIZ and had the opportunity to ask questions and assume patient care.
[2020-07-30 07:15] VITALS: BP 124/95
[2020-07-30] MEDS: nicotine 14mg patch - 24hr TD SCH (08:00)
[2020-07-30 08:56] LABS: ANISOCYTOSIS 3+; HYPOCHROMASIA 1+; MICROCYTOSIS 1+; PLATELET ESTIMATE NORMAL; POLYCHROMASIA 1+
[2020-07-30 08:57] LABS: POIKILOCYTOSIS 1+
[2020-07-30 09:05] VITALS: BP_SYST 124
[2020-07-30] MEDS: lisinopril 2.5mg tablet PO SCH (09:05)
[2020-07-30] MEDS: carVEDilol 3.125mg tablet PO SCH (09:05)
[2020-07-30] MEDS: enoxaparin 40mg/0.4ml syringe SQ SCH (09:05)
[2020-07-30] MEDS: lactobacillus rhamnosus 10,000 MMU CELLS/CAPSULE PO SCH (09:05)
[2020-07-30] MEDS: enoxaparin 30mg/0.3ml syringe SUBCUT SCH (09:07)
[2020-07-30] MEDS: cefepime inj. 1 GM in normal saline 100ml IV soln 100 ML IV SCH (09:13)
[2020-07-30] MEDS ORDERED: HYDROmorphone inj. 0.5 MG/0.5 ML DISP.SYRIN IV PRN (10:00)
[2020-07-30] MEDS ORDERED: HYDROmorphone 1 mg/ml syringe IV PRN (10:00)
--- NOTE | 2020-07-30 10:00 | NUR ---
DR WENT IN TO SEE PT AND PT STATED SHE WANTS TO GO HOME. DR EDUCATED HER ON HER ELEVATION OF WBC AND ORDERED AN ABX AND RECHECK OF CBC TO SEE IF SHE COULD D/C HER TODAY. DR ALSO LET HER KNOW SHE COULD NOT GO HOME ON DILAUDED. SHE BECAME VERY AGITATED AND AGGRESSIVE AND STATED SHE WAS LEAVING AMA GET HER A PAPER TO SIGN. I TRIED TO EXPLAIN TO HER THE IMPORTANCE OF STAYING. SHE REFUSED.
--- NOTE | 2020-07-30 10:10 | NUR ---
REMOVED HER FEMORAL CENTRAL LINE AND HELD PRESSURE FOR 10 MINUTES. I EDUCATED PT ON THE IMPORTANCE OF LAYING DOWN FOR 30 MINUTES TO MAKE SURE THE BLEEDING HAS COMPLETELY STOPPED. SHE DID NOT WANT TO WAIT. SHE LEFT AMA AFTER 10M MINUTES. EVS WAS IN THE ROOM WHEN I EDUCATED HER ON THE DANGERS OF NOT WAITING TO MAKE SURE THE BLEED HAS COMPLETELY STOPPED.
--- NOTE | 2020-07-30 10:36 | NUR ---
PT LEFT 5 MINUTES AGO
== END 2020-07-30 11:29 | disposition left against medical advice (07) | DRG 134 ==
LOC: ER 10:01 → ED HOLD 14:21 → PCU 3S 22:35
PROVIDERS: ADMIT Family Medicine; ATTEND Family Medicine
DX: I26.99 Other pulmonary embolism without acute cor pulmonale (principal); F11.90 Opioid use, unspecified, uncomplicated; F17.210 Nicotine dependence, cigarettes, uncomplicated; I50.22 Chronic systolic (congestive) heart failure; Z86.79 Personal history of other diseases of the circulatory system; Z82.49 Family history of ischemic heart disease and other diseases of the circulatory system; Z20.828 Contact with and (suspected) exposure to other viral communicable diseases
CPT/HCPCS: 36415; 71045; 80053; 80202; 80305; 81025; 83605; 83735; 83880; 84145; 85008; 85025; 85610; 85730; 87040; 87081; 93005; 93306; 93308; 94640; 96365; 99285; G0378; J0692; J0696; J1170; J1644; J1650; J2270; J2997; J3370; J7030

== ENCOUNTER 2020-07-30 11:08 | Emergency (ER) | payer MEDICAID ==
[~2020-07-30] VITALS: Ht 167.6 cm; Wt 63.6 kg
[~2020-07-30 11:08] MED LIST changes: -ASPI-1071 PO; +CARV3.122 PO; -LACT1CAP26 PO; -LISI-642 PO; -METO-395 PO; +RIVA20TA PO; -SPIR25TA5 PO
--- NOTE | 2020-07-30 11:27 | NUR ---
Attempted to contact RN from PCU, unable to speak with her. PCU states that she will return call as soon as possible.
--- NOTE | 2020-07-30 11:31 | NUR ---
Spoke to PCU mucking machine operator. Pt is a known IV drug user, and most recent echo shows EF of 10%. Per RN, pt was placed on Dilaudid 1mg q4hr PRN on admission, which pt was insistent upon receving as often as possible. Today, after receiving two doses, the pt was informed by Dr. Cabrera that they would be weaning her off Dilaudid; pt recame extremely agitated and stated that she wanted to leave AMA. Pt was counciled at length by Dr. Cabrera, as well as both the primary RN and charge gang weigher on floor. Pt still insistent on leaving. Ambulated out of PCU, and was found attempting to crawl out of elevator on first floor. She was then assisted into a wheelchair and was still refusing to be seen. This occurred roughly one hour PARTRIDGE FARMER into the ED. Pt had R femoral central line that was removed prior to pt leaving.
[2020-07-30 11:50] VITALS: BP 114/90
--- NOTE | 2020-07-30 12:40 | NUR ---
Senior Sas Developer consulted. Pt given [employer] bus ticket as well as [place] for k[place]sey to use [employer]. Pt states she has a ride that can pick her up in [place], [place] [facility] her off.
== END 2020-07-30 12:49 | disposition home or self-care (01) ==
LOC: ER 11:09
DX: I26.99 Other pulmonary embolism without acute cor pulmonale (principal); J90 Pleural effusion, not elsewhere classified; I50.9 Heart failure, unspecified; F17.200 Nicotine dependence, unspecified, uncomplicated; F12.90 Cannabis use, unspecified, uncomplicated; F11.90 Opioid use, unspecified, uncomplicated; Z88.0 Allergy status to penicillin; Z88.2 Allergy status to sulfonamides; Z88.8 Allergy status to other drugs, medicaments and biological substances; Z79.899 Other long term (current) drug therapy
CPT/HCPCS: 93005; 99283